=== PATIENT | female | born 1950 | race Caucasian/White ===

== ENCOUNTER → 2020-12-26 | Outpatient (CLI) | payer MEDICARE, OTHER ==
[2020-12-27 07:11] LABS: RHEUMATOID ARTHRITIS FACTOR 35.1 IU/mL (0.0-13.9)
== END ==
LOC: LAB 13:46
PROVIDERS: Nurse Practitioner Family
DX: M79.642 Pain in left hand (principal); M79.641 Pain in right hand; M79.672 Pain in left foot; M79.671 Pain in right foot; R53.83 Other fatigue; M25.50 Pain in unspecified joint
CPT/HCPCS: 36415; 73130; 73630; 82728; 83520; 85652; 86140; 86200; 86431

== ENCOUNTER → 2021-03-15 | Outpatient (CLI) | payer MEDICARE, OTHER ==
[2021-03-15 10:05] LABS: HEMOGLOBIN 12.6 gm/dl (12.3-15.3); RED BLOOD COUNT 4.11 M/UL (4.00-5.10); WHITE BLOOD COUNT 9.4 K/UL (4.5-11.0)
== END ==
LOC: LAB 09:23
PROVIDERS: Nurse Practitioner Family
DX: Z00.00 Encounter for general adult medical examination without abnormal findings (principal); E03.9 Hypothyroidism, unspecified; M25.50 Pain in unspecified joint; E78.5 Hyperlipidemia, unspecified; F41.9 Anxiety disorder, unspecified; R53.83 Other fatigue; E53.8 Deficiency of other specified B group vitamins; E55.9 Vitamin D deficiency, unspecified
CPT/HCPCS: 36415; 80053; 80061; 82607; 84439; 84443; 85025

== ENCOUNTER → 2021-05-21 | Outpatient (CLI) | payer MEDICARE, OTHER | LOC: EXRD 13:31 | DX: R31.9 Hematuria, unspecified (principal); M54.16 Radiculopathy, lumbar region; K56.41 Fecal impaction | CPT/HCPCS: 72100; 74018 ==